=== PATIENT | female | born 1965 | race Caucasian/White ===

== ENCOUNTER 2024-12-17 17:33 | Observation (INO) ==
[2024-12-17 18:16] LABS: Hematocrit (blood only) 44.4 % (37.0-47.0); Hemoglobin 14.7 g/dl (12.0-16.0); Immature Granulocytes # (auto) 0.03 K/uL (0.01-0.20); Immature Granulocytes % (auto) 0.3 %; Mean Corpuscular Hemoglobin 29.6 pg (25.0-34.0); Mean Corpuscular Volume 89.5 fL (80.0-100.0); Platelet Count 307 K/uL (130-400); RDW Standard Deviation 39.1 fL (36.4-46.3); Red Blood Count 4.96 M/uL (4.20-5.40); White Blood Count 11.45 K/ul (4.8-10.8)
[2024-12-17 18:34] LABS: Alanine Aminotransferase 29.0 U/L (7-52); Albumin Globulin Ratio 1.2 (0.9-2); Albumin Level 4.6 gm/dl (3.4-5.0); Alkaline Phosphatase 106.0 U/L (34-104); Anion Gap 9.0 (3-11); Bilirubin,Total 0.6 mg/dl (0.2-1.0); Blood Urea Nitrogen 19.0 mg/dl (6-23); Calcium 10.4 mg/dl (8.6-10.3); Carbon Dioxide 25.0 mmol/L (21-32); Chloride 104.0 mmol/L (98-107); Creatinine Clr Calc Pharmacy 115.3 ml/min; Globulin 3.9 gm/dl (2.5-4.0); Glucose 104.0 mg/dl (70-99(Fasting)); Potassium 4.2 mmol/L (3.5-5.1); Sodium 138.0 mmol/L (136-145); Total Protein 8.5 gm/dl (6.0-8.3)
--- NOTE | 2024-12-17 19:10 | XRay Report ---
Chest radiograph, one view History: Chest pain Comparison: None Findings: Single AP view of the chest performed. No focal consolidation or pleural effusion. No pneumothorax. Small granuloma in the mid right lung. The cardiomediastinal silhouette is within normal limits. Normal pulmonary vascularity. No evidence for lymphadenopathy. No visualized bony or soft tissue abnormality. Impression: Normal chest radiograph Electronically signed by Dontae Hinojosa 12-17-2024 7:10 PM
[2024-12-17] MEDS: ASPIRIN CHEW 324 MG PO STA (19:53)
--- NOTE | 2024-12-17 19:53 | Emergency Department Note ---
Impression & Plan Chest pain, Hypertensive urgency, Shortness of breath ED Provider Note NAME: COLLINS NOE AGE: 59 SEX: F : 1965 ARRIVES VIA: Walk-In INFORMANT: Patient ED PROVIDER(S): Karson Perry DO CHIEF COMPLAINT: Chest tightness HPI: Patient is a 59-year-old female with a past medical history of hyperlipidemia and obesity who presents to the ER for tightness in the middle of her chest. This started around 3 PM today when she was out shopping. She notes she has not felt well since then and has felt off. She has some mild shortness of breath with this. Over the past 2 weeks she has noticed an shortness of breath with exertion which has worsened as she initially noticed this several months ago. She denies any belly pain, nausea, vomiting, or diarrhea. No dysuria, urgency, or frequency. She felt really hot and warm. Currently has very mild tightness. She admits to a family history of heart disease. Denies any recent trips or travel, swelling of the calfs history of blood clots or clotting disorders. ADDITIONAL HISTORY OBTAINED: Per HPI Chronic Medical/Social Conditions Affecting Care: Per HPI PAST MEDICAL HISTORY:See Below PAST SURGICAL HISTORY:See Below FAMILY HISTORY:See Below SOCIAL HISTORY:See Below HOME MEDICATIONS:See Below ALLERGIES:See Below VITALS:See Below PHYSICAL EXAMINATION: GENERAL: Sitting up in bed, alert, well appearing, well nourished, no distress, non-toxic EYE EXAM: normal conjunctiva. OROPHARYNX: mucous membranes are moist NECK: supple, no nuchal rigidity, no adenopathy, non-tender LUNGS: Clear to auscultation. Normal chest wall mechanics HEART: no murmurs, S1 normal and S2 normal ABDOMEN: abdomen soft, non-tender, normo-active bowel sounds, no masses, no rebound or guarding. UPPER EXTREMITIES: upper extremities are grossly normal. LOWER EXTREMITIES: No pitting edema. NEURO EXAM: Normal sensorium, cranial nerves II-XII grossly intact, normal speech, no gross weakness of arms, no gross weakness of legs. MEDICAL DECISION MAKING: Patient is a 59-year-old female who presents ER for the above-stated complaint. IV was established and blood work was obtained. Upon arrival blood pressures were found to be 220-240 systolic. Labs show mild leukocytosis 11,000. No significant anemia. INR unremarkable. BMP with LFTs bilirubin was on remarkable. Troponins were negative x 2. Lipase was normal. Chest x-ray was negative. Patient was given nitro and aspirin. Blood pressures did to the 170s to 180s. Did not want to lower any further as her systolics were 240s initially. Chest pain resolved. Discussed case with hospitalist for further evaluation management treatment. Consults/Care Managements Discussions: Per [facility] Triage Nursing notes reviewed. Limited review of prior medical records performed Vital Signs: reviewed and remarkable for no significant abnormalities Differential diagnosis: Cardiac ischemia, aortic dissection, pulmonary embolism, pneumothorax, pneumonia, pericarditis, myocarditis, esophageal rupture, GERD, cholecystitis, pancreatitis, musculoskeletal, as well as other pathologies. ER treatment provided: See below Diagnostics interpreted by me include EKG and cardiac monitoring as listed below: -Cardiac Monitoring: An order was placed for continuous cardiac monitoring. The monitor shows a rate of 100 with sinus rhythm. -ECG: Sinus rhythm rate of 100 Normal axis No PVCs Nonspecific ST wave changes in the inferior leads QTc 428 -Laboratory studies:Interpreted by me as stated above in MDM and shown below. Imaging studies: Xrays: As interpreted by me: Portable AP upright 1 view of the chest showed no focal infiltrate CTs show: None Procedures: None Critical Care: None Past Med/Surg History Problem List (Updated 12/17/24 @ 22:41 by Karson Perry DO) Shortness of breath (Acute) Hypertensive urgency (Acute) Chest pain (Acute) Medical History History of kidney stones GERD (gastroesophageal reflux disease) Surgical History Hx of cataract extraction LEFT History of hysterectomy with unilateral oophorectomy History of bilateral tubal ligation History of fusion of cervical spine normal ROM History of bladder suspension procedure bladder tack History of colonoscopy History of cholecystectomy History of tooth extraction History of tonsillectomy Family History Other No family history of adverse response to anesthesia Social History Smoking Status: Unknown if ever smoked Tobacco Type: Cigarettes Second Hand Exposure: No; Do You Dip or Chew Tobacco: No; Hx Alcohol Use: Yes Alcohol type: hard liquor Hx Substance Use: No Preferred Language: Panamanian Communication Ability: Effective [employer] Delivery Officer Required: No Beliefs That Will Affect Care: None Current Living Situation: Spouse Feels Safe at Home: Yes Assistive Devices: Contacts Allergies Allergies Allergy/AdvReac Type Severity Reaction Status Date / Time No Known Allergies Allergy Verified 12/17/24 19:48 Home Meds Home Medications Medication Instructions Recorded Confirmed ascorbic acid (vitamin C) 500 mg 1,000 mg PO QAM 03/10/24 12/17/24 chewable tablet aspirin 81 mg capsule 81 mg PO DAILY 03/10/24 12/17/24 cholecalciferol (vitamin D3) 50 50 mcg PO QAM 03/10/24 12/17/24 mcg (2,000 unit) tablet (Vitamin D3) cinnamon bark-chromium picolinate 1 cap PO QAM 03/10/24 12/17/24 500 mg-100 mcg capsule cyanocobalamin (vitamin B-12) 2,500 mcg PO QAM 03/10/24 12/17/24 2,500 mcg sublingual tablet (Vitamin B-12) naproxen 500 mg tablet 500 mg PO DAILY PRN Pain 03/10/24 12/17/24 omega 4-rkx-xal-fish oil 1,200 mg 1 cap PO QAM 03/10/24 12/17/24 (144 mg-216 mg) capsule (Fish Oil) vitamin E 400 unit tablet 400 unit PO QAM 03/10/24 12/17/24 omeprazole 20 mg capsule,delayed 20 mg PO BID 12/17/24 12/17/24 release Results & Data (ED) Vital Signs Vital Signs - 24 hr 12/17/24 17:43 12/17/24 19:45 12/17/24 20:00 Temperature 36.9 C Temperature Source Temporal Artery Scan Pulse Rate 92 H 91 H Pulse Rate [Right Finger] 87 Pulse Rhythm [Right Finger] Regular Pulse Strength [Right Finger] Normal Respiratory Rate 19 19 Respiratory Effort / Characteristics Non-Labored Spontaneous Non-Labored Spontaneous Respiratory Depth Normal Normal Respiratory Pattern Regular Blood Pressure 208/76 H Blood Pressure [Right Arm] 240/129 H Blood Pressure Mean 120 Blood Pressure Mean [Right Arm] 166 Blood Pressure Position [Right Arm] Lying Pulse Oximetry 96 91 Oxygen Delivery Method Room Air Room Air Sepsis Recent Fever Within 48 Hours No Sepsis New/Unexplained Change in Mental Status N/A Sepsis Action Taken by Nursing No Action Required 12/17/24 22:33 Temperature Temperature Source Pulse Rate Pulse Rate [Right Finger] 91 H Pulse Rhythm [Right Finger] Regular Pulse Strength [Right Finger] Respiratory Rate 16 Respiratory Effort / Characteristics Non-Labored Respiratory Depth Normal Respiratory Pattern Blood Pressure Blood Pressure [Right Arm] 177/92 H Blood Pressure Mean Blood Pressure Mean [Right Arm] 120 Blood Pressure Position [Right Arm] Pulse Oximetry 98 Oxygen Delivery Method Room Air Sepsis Recent Fever Within 48 Hours Sepsis New/Unexplained Change in Mental Status Sepsis Action Taken by Nursing Laboratory Data 12/17/24 18:03 12/17/24 18:03 Lab Results 12/17/24 12/17/24 12/17/24 Range/Units 18:03 19:49 19:50 WBC 11.45 H (4.8-10.8) K/ul RBC 4.96 (4.20-5.40) M/uL Hgb 14.7 (12.0-16.0) g/dl Hct 44.4 (37.0-47.0) % MCV 89.5 (80.0-100.0) fL MCH 29.6 (25.0-34.0) pg MCHC 33.1 (32.0-36.0) g/dL RDW Std Deviation 39.1 (36.4-46.3) fL RDW Coeff of Pj 12.0 (11.5-14.5) % Plt Count 307 (130-400) K/uL MPV 10.1 (9.4-12.4) fL Immature Gran % (Auto) 0.3 % Neut % (Auto) 69.3 % Lymph % (Auto) 23.2 % [place] % (Auto) 5.8 % Eos % (Auto) 1.2 % Baso % (Auto) 0.2 % Neut # (Auto) 7.94 H (1.40-6.50) K/uL Lymph # (Auto) 2.66 (1.20-3.40) K/uL [place] # (Auto) 0.66 H (0.11-0.59) K/uL Eos # (Auto) 0.14 (0.00-0.50) K/uL Baso # (Auto) 0.02 (0.00-0.20) K/uL Immature Gran # (Auto) 0.03 (0.01-0.20) K/uL PT Cancelled 10.6 INR Cancelled 1.0 APTT Cancelled 28 PTT Ratio Cancelled 1.0 Sodium 138 (136-145) mmol/L Potassium 4.2 (3.5-5.1) mmol/L Chloride 104 (98-107) mmol/L Carbon Dioxide 25 (21-32) mmol/L Anion Gap 9 (3-11) BUN 19 (6-23) mg/dl Creatinine 0.68 (0.6-1.2) mg/dl Est Cr Clr Drug Dosing 115.3 ml/min eGFR 99.64 BUN/Creatinine Ratio 27.9 H (10-20) Glucose 104 H (70-99(Fasting)) mg/dl Calcium 10.4 H (8.6-10.3) mg/dl Phosphorus 3.3 (2.5-4.9) mg/dl Total Bilirubin 0.6 (0.2-1.0) mg/dl AST 24 (13-39) U/L ALT 29 (7-52) U/L Alkaline Phosphatase 106 H (34-104) U/L Troponin I High Sens 3.7 3.9 (0-14) pg/ml Total Protein 8.5 H (6.0-8.3) gm/dl Albumin 4.6 (3.4-5.0) gm/dl Globulin 3.9 (2.5-4.0) gm/dl Albumin/Globulin Ratio 1.2 (0.9-2) Lipase 12 (11-82) U/L Administered Medications Sodium Chloride (Nss) 1,000 mls @ 60 mls/hr IV .[id number] ONE Stop: 12/18/24 13:15 Last Admin: 12/17/24 20:58 Dose: 60 mls/hr Documented By: MICHELL Nitroglycerin (Nitroglycerin Sl 0.4 Mg/Tab Tab) 0.4 mg SL Q5M PRN PRN Reason: Chest Pain Stop: 01/16/25 19:47 Last Admin: 12/17/24 19:59 Dose: 0.4 mg Documented By: MICHELL Discontinued Medications Aspirin (Aspirin Chew 324 Mg) 324 mg PO NOW STA Stop: 12/17/24 19:49 Last Admin: 12/17/24 19:53 Dose: 324 mg Documented By: [facility] Lisinopril (Lisinopril 5 Mg Tab) 5 mg PO NOW ONE Stop: 12/17/24 20:40 Last Admin: 12/17/24 20:58 Dose: 5 mg Documented By: [facility] Imaging Data Radiologist's Impression: Chest X-Ray 12/17/24 17:46 Chest radiograph, one view History: Chest pain Comparison: None Findings: Single AP view of the chest performed. No focal consolidation or pleural effusion. No pneumothorax. Small granuloma in the mid right lung. The cardiomediastinal silhouette is within normal limits. Normal pulmonary vascularity. No evidence for lymphadenopathy. No visualized bony or soft tissue abnormality. Impression: Normal chest radiograph Electronically signed by Dontae Hinojosa 12-17-2024 7:10 PM Discharge Plan Visit Data Chief Complaint: Referred by Doctor Stated Complaint: TIGHTNESS IN CHESST, BOTTOM LIP NUMB DOC REFERRAL ED Provider: Karson Perry Discharge Problem: Chest pain, Hypertensive urgency, Shortness of breath Condition: Fair Forms Stand Alone Forms: [facility] Prescriptions Prescriptions: No Action omeprazole 20 mg capsule,delayed release(DR/EC) 20 mg PO BID cyanocobalamin (vitamin B-12) [Vitamin B-12] 2,500 mcg Tablet, Sublingual 2,500 mcg PO QAM ascorbic acid (vitamin C) 500 mg Tablet,Chewable 1,000 mg PO QAM vitamin E 400 unit Tablet 400 unit PO QAM naproxen 500 mg Tablet 500 mg PO DAILY PRN (Reason: Pain) cholecalciferol (vitamin D3) [Vitamin D3] 50 mcg (2,000 unit) Tablet 50 mcg PO QAM omega 5-ejw-fbe-fish oil [Fish Oil] 1,200 (144-216) mg Capsule 1 cap PO QAM cinnamon bark-chromium picolin 500-100 mg-mcg Capsule 1 cap PO QAM aspirin 81 mg Capsule 81 mg PO DAILY Referrals Referrals: Marietta Salazar DO [Primary Care Provider] - Discharge Problem: Chest pain Qualifiers: Chest pain type: unspecified Qualified Code(s): R07.9 - Chest pain, unspecified
[2024-12-17] MEDS: NITROGLYCERIN SL 0.4 MG/TAB TAB SL PRN (19:59)
[2024-12-17 20:27] LABS: Lipase 12.0 U/L (11-82)
[2024-12-17 20:42] LABS: INR 1.0 (0.9-1.1); Partial Thromboplastin Time 28 Seconds (21-31); Prothrombin Time 10.6 Seconds (9.0-12.0)
[2024-12-17] MEDS: SODIUM CHLORIDE 0.9% 1,000 ML IV ONE (20:58)
--- NOTE | 2024-12-17 21:28 | History & Physical Report ---
Date of Service December 17, 2024 Assessment & Plan (1) Chest pain: Plan: Assessment and plan below following discussion of case with ED provider and reviewing patient history/pertinent normal/abnormal diagnostic test results. Chest pain secondary to hypertensive crisis Mild hypercalcemia hyperlipidemia, on statin Rx hx GERD, stable on PPI past tobacco abuse OBS PCU Initiate lisinopril Monitor calcium response to NSS IVF, check Phos and intact PTH levels TTE re: chest pain DVT prophylaxis. Lovenox subcu Full code Text document was generated using [employer] voice recognition software. It may contain grammatical or spelling errors. Kindly contact undersigned for clarification of any documentation item in question. History of Present Illness Chief Complaint: Chest tightness Primary Care Provider: Marietta Salazar DO History obtained from patient, family, and records. Medical history significant for borderline hypertension, hyperlipidemia, GERD, past tobacco abuse. Patient recovering from respiratory tract infection the last few days. Not sure about sick contacts. Cough symptoms productive of clear sputum improving. Denies fever, chills. Patient had chest tightness today associated with some SOB and diaphoresis. Different from reflux. Denies abdominal pain. Denies unusual stress at home. Achy headache symptoms. Patient snores at night as per . No witnessed apneic events. Highest SBP of 240s documented at the ER. Chest tightness improved with nitroglycerin administration. Medical History as above Surgical History : Neck surgery, cholecystectomy, hysterectomy Family History : Heart disease, DM, stroke Personal/Social history : Last tobacco abuse, occasional EtOH intake, retired convention manager Allergies Allergy/AdvReac Type Severity Reaction Status Date / Time No Known Allergies Allergy Verified 12/17/24 19:48 Home Medications Medication Instructions Recorded Confirmed Type ascorbic acid (vitamin C) 500 mg 1,000 mg PO QAM 03/10/24 12/17/24 History chewable tablet aspirin 81 mg capsule 81 mg PO DAILY 03/10/24 12/17/24 History cholecalciferol (vitamin D3) 50 50 mcg PO QAM 03/10/24 12/17/24 History mcg (2,000 unit) tablet (Vitamin D3) cinnamon bark-chromium picolinate 1 cap PO QAM 03/10/24 12/17/24 History 500 mg-100 mcg capsule cyanocobalamin (vitamin B-12) 2,500 mcg PO QAM 03/10/24 12/17/24 History 2,500 mcg sublingual tablet (Vitamin B-12) naproxen 500 mg tablet 500 mg PO DAILY PRN Pain 03/10/24 12/17/24 History omega 8-cww-plr-fish oil 1,200 mg 1 cap PO QAM 03/10/24 12/17/24 History (144 mg-216 mg) capsule (Fish Oil) vitamin E 400 unit tablet 400 unit PO QAM 03/10/24 12/17/24 History omeprazole 20 mg capsule,delayed 20 mg PO BID 12/17/24 12/17/24 History release Past Med/Surg History Problem List (Updated 12/17/24 @ 22:41 by Karson Perry DO) Shortness of breath (Acute) Hypertensive urgency (Acute) Chest pain (Acute) Medical History History of kidney stones GERD (gastroesophageal reflux disease) Surgical History Hx of cataract extraction LEFT History of hysterectomy with unilateral oophorectomy History of bilateral tubal ligation History of fusion of cervical spine normal ROM History of bladder suspension procedure bladder tack History of colonoscopy History of cholecystectomy History of tooth extraction History of tonsillectomy Family History Other No family history of adverse response to anesthesia Social History Smoking Status: Former smoker Tobacco Type: Cigarettes Second Hand Exposure: No; Do You Dip or Chew Tobacco: No; Tobacco Cessation Education Requested by Patient: No Hx Alcohol Use: Yes Alcohol type: hard liquor Hx Substance Use: No Preferred Language: Luxembourgish Communication Ability: Effective [place] Applier Required: No Beliefs That Will Affect Care: None Current Living Situation: Spouse Other Information That Helps Us Care for You: No Feels Safe at Home: Yes Safety Concerns: Feels Safe At This Time Assistive Devices: None Review of Systems Review of Systems: As per HPI, all other systems reviewed and negative Physical Exam Physical Exam: GENERAL: Comfortable, pleasant, morbidly obese, no respiratory distress SKIN: Normal color, warm HEENT: [place] palpebral conjunctivae, no ptosis, dry buccal mucosa NECK : Supple, short neck, no tenderness CHEST : CTA, no tenderness HEART : RRR, no obvious murmurs ABDOMEN: Some distention, nontender EXTREMITIES : Minimal LE swelling, no LE tenderness, palpable pulses, no other conspicuous deformities noted NEUROLOGIC : Coherent, no facial asymmetry, no other gross focality Results & Data Results & Data Vital Signs (Past 12 Hours) Vital Signs Temp Pulse Pulse Resp BP BP Pulse Ox 12/17/24 20:00 91 H 12/17/24 19:45 87 19 240/129 H 91 12/17/24 17:43 36.9 C 92 H 19 208/76 H 96 O2 Del Method 12/17/24 20:00 12/17/24 19:45 Room Air 12/17/24 17:43 Room Air Laboratory Results Laboratory Results WBC 11.45 K/ul (4.8-10.8) H 12/17/24 18:03 RBC 4.96 M/uL (4.20-5.40) 12/17/24 18:03 Hgb 14.7 g/dl (12.0-16.0) 12/17/24 18:03 Hct 44.4 % (37.0-47.0) 12/17/24 18:03 MCV 89.5 fL (80.0-100.0) 12/17/24 18:03 MCH 29.6 pg (25.0-34.0) 12/17/24 18:03 MCHC 33.1 g/dL (32.0-36.0) 12/17/24 18:03 RDW Std Deviation 39.1 fL (36.4-46.3) 12/17/24 18:03 RDW Coeff of Pj 12.0 % (11.5-14.5) 12/17/24 18:03 Plt Count 307 K/uL (130-400) 12/17/24 18:03 MPV 10.1 fL (9.4-12.4) 12/17/24 18:03 Immature Gran % (Auto) 0.3 % 12/17/24 18:03 Neut % (Auto) 69.3 % 12/17/24 18:03 Lymph % (Auto) 23.2 % 12/17/24 18:03 [place] % (Auto) 5.8 % 12/17/24 18:03 Eos % (Auto) 1.2 % 12/17/24 18:03 Baso % (Auto) 0.2 % 12/17/24 18:03 Neut # (Auto) 7.94 K/uL (1.40-6.50) H 12/17/24 18:03 Lymph # (Auto) 2.66 K/uL (1.20-3.40) 12/17/24 18:03 [place] # (Auto) 0.66 K/uL (0.11-0.59) H 12/17/24 18:03 Eos # (Auto) 0.14 K/uL (0.00-0.50) 12/17/24 18:03 Baso # (Auto) 0.02 K/uL (0.00-0.20) 12/17/24 18:03 Immature Gran # (Auto) 0.03 K/uL (0.01-0.20) 12/17/24 18:03 PT 10.6 Seconds (9.0-12.0) 12/17/24 19:49 INR 1.0 (0.9-1.1) 12/17/24 19:49 APTT 28 Seconds (21-31) 12/17/24 19:49 PTT Ratio 1.0 12/17/24 19:49 Sodium 138 mmol/L (136-145) 12/17/24 18:03 Potassium 4.2 mmol/L (3.5-5.1) 12/17/24 18:03 Chloride 104 mmol/L (98-107) 12/17/24 18:03 Carbon Dioxide 25 mmol/L (21-32) 12/17/24 18:03 Anion Gap 9 (3-11) 12/17/24 18:03 BUN 19 mg/dl (6-23) 12/17/24 18:03 Creatinine 0.68 mg/dl (0.6-1.2) 12/17/24 18:03 Est Cr Clr Drug Dosing 115.3 ml/min 12/17/24 18:03 eGFR 99.64 12/17/24 18:03 BUN/Creatinine Ratio 27.9 (10-20) H 12/17/24 18:03 Glucose 104 mg/dl (70-99(Fasting)) H 12/17/24 18:03 Calcium 10.4 mg/dl (8.6-10.3) H 12/17/24 18:03 Phosphorus 3.3 mg/dl (2.5-4.9) 12/17/24 19:50 Total Bilirubin 0.6 mg/dl (0.2-1.0) 12/17/24 18:03 AST 24 U/L (13-39) 12/17/24 18:03 ALT 29 U/L (7-52) 12/17/24 18:03 Alkaline Phosphatase 106 U/L (34-104) H 12/17/24 18:03 Troponin I High Sens 3.9 pg/ml (0-14) 12/17/24 19:50 Total Protein 8.5 gm/dl (6.0-8.3) H 12/17/24 18:03 Albumin 4.6 gm/dl (3.4-5.0) 12/17/24 18:03 Globulin 3.9 gm/dl (2.5-4.0) 12/17/24 18:03 Albumin/Globulin Ratio 1.2 (0.9-2) 12/17/24 18:03 Lipase 12 U/L (11-82) 12/17/24 19:50 Impressions Chest X-Ray 12/17/24 17:46 Chest radiograph, one view History: Chest pain Comparison: None Findings: Single AP view of the chest performed. No focal consolidation or pleural effusion. No pneumothorax. Small granuloma in the mid right lung. The cardiomediastinal silhouette is within normal limits. Normal pulmonary vascularity. No evidence for lymphadenopathy. No visualized bony or soft tissue abnormality. Impression: Normal chest radiograph Electronically signed by Dontae Hinojosa 12-17-2024 7:[address] head: No evidence of acute intracranial pathology. Diagnostic Findings EKG as per my interpretation :Rate 85, NSR, normal axis, T wave inversion inferior leads (1) Chest pain Chest pain type: unspecified Qualified Code(s): R07.9 - Chest pain, unspecified
[2024-12-17 22:57] LABS: Influenza A virus by PCR Negative (Neg); Influenza B virus by PCR Negative (Neg); SARS CoV2 RNA(COVID-19) Ceph NEGATIVE (Negative)
--- NOTE | 2024-12-17 23:48 | CT Scan Report ---
Exam(s): CT HEAD Without Contrast EXAM: CT Head Without Intravenous Contrast CLINICAL HISTORY: Reason for exam: vieira, htn crisis. TECHNIQUE: Axial computed tomography images of the head/brain without intravenous contrast. CTDI is 36.79 mGy and DLP is 546.36 mGy-cm. Automated exposure control was utilized for the study. A dose lowering technique was utilized adhering to the principles of ALARA. COMPARISON: No relevant prior studies available. FINDINGS: Brain: Unremarkable. No hemorrhage. No significant white matter disease. No edema. Ventricles: Unremarkable. No ventriculomegaly. Bones/joints: Incomplete fusion of the posterior ring of C1. No acute fracture. Soft tissues: Unremarkable. Sinuses: Unremarkable as visualized. No acute sinusitis. Mastoid air cells: Unremarkable as visualized. No mastoid effusion. IMPRESSION: No evidence of acute intracranial pathology. Electronically signed by: Jessica Guzman MD 12/17/24 23:47 PM
[2024-12-17 23:56] LABS: Calcium 10.0 mg/dl (8.6-10.3)
[2024-12-17] MEDS ORDERED: MoRPHine SULFATE 4 MG/ML 1 ML CARP\\VIAL IV PRN (23:56)
[2024-12-17] MEDS ORDERED: LORazepam 0.5 MG TAB PO PRN (23:57)
[2024-12-17] MEDS ORDERED: ACETAMINOPHEN 325 MG TAB PO PRN (23:57)
[2024-12-18 01:44] VITALS: RESP 18
[2024-12-18] MEDS: FAMOTIDINE 20MG IV PUSH 20 MG/5 ML SYR IV ONE (01:51)
[2024-12-18] MEDS ORDERED: MoRPHine SULFATE 4 MG/ML 1 ML CARP\\VIAL IV PRN (07:49)
[2024-12-18 08:45] LABS: Hematocrit (blood only) 39.0 % (37.0-47.0); Hemoglobin 12.9 g/dl (12.0-16.0); Immature Granulocytes # (auto) 0.05 K/uL (0.01-0.20); Immature Granulocytes % (auto) 0.6 %; Mean Corpuscular Hemoglobin 29.5 pg (25.0-34.0); Mean Corpuscular Volume 89.2 fL (80.0-100.0); Platelet Count 290 K/uL (130-400); RDW Standard Deviation 39.6 fL (36.4-46.3); Red Blood Count 4.37 M/uL (4.20-5.40); White Blood Count 9.09 K/ul (4.8-10.8)
[2024-12-18 09:02] LABS: Anion Gap 9.0 (3-11); Blood Urea Nitrogen 14.0 mg/dl (6-23); Calcium 9.6 mg/dl (8.6-10.3); Carbon Dioxide 24.0 mmol/L (21-32); Chloride 106.0 mmol/L (98-107); Creatinine Clr Calc Pharmacy 122.0 ml/min; Glucose 101.0 mg/dl (70-99(Fasting)); Magnesium 1.9 mg/dl (1.7-2.4); Potassium 3.8 mmol/L (3.5-5.1); Sodium 139.0 mmol/L (136-145)
[2024-12-18] MEDS: CYANOCOBALAMIN (B-12) 2,500 MCG TABLET PO SCH (09:03)
[2024-12-18] MEDS: ASPIRIN 81 MG ECTAB PO SCH (09:03)
[2024-12-18] MEDS: LOSARTAN POTASSIUM 25 MG TAB PO SCH (09:04)
[2024-12-18] MEDS: ENOXAPARIN INJ 40 MG/0.4 ML SYR SQ SCH (09:04)
[2024-12-18 11:11] VITALS: BP 130/76; TEMP 98.1; O2SAT 94
--- NOTE | 2024-12-18 13:36 | Hospitalist Progress Note ---
Date of Service December 18, 2024 Assessment & Plan (1) Chest pain: Plan: Hypertensive urgency Atypical chest pain likely due to above --CXR:Normal chest radiograph --Head CT:No evidence of acute intracranial pathology. --ECHO: Left ventricle is normal in size. Borderline concentric LVH. No regional wall motion abnormality. EF 55 to 60%. No gross valvular abnormalities --Troponin x 3: Negative Symptoms resolved after blood pressure control Started on amlodipine 2.5 mg daily, losartan 25 mg daily Advised to get sleep study as outpatient If recurrent chest pain, advised to get stress test as outpatient Patient understands and agrees with the plan Plan to be discharged home today Mild hypercalcemia Resolved with IV fluids Normal PTH Vitamin D level not elevated Vitamin D deficiency Continue vitamin D supplement Hyperlipidemia Currently not taking statin due to intolerance Advised to follow-up as outpatient GERD Continue PPI Past tobacco abuse Morbid obesity BMI 47.8 Counseled lifestyle changes DVT Px: Lovenox SQ Code Status Full code Admission and Anticipated Discharge Date Admission Date: December 17, 2024 Subjective Patient is seen and examined at bedside Headache much improved Chest discomfort resolved Offers no other complaints Denies any dyspnea, nausea, vomiting, abdominal pain Family at bedside Review of Systems Review of Systems: All systems reviewed & are unremarkable except as noted in Subjective Physical Exam Physical Exam: Physical Exam: Vitals signs as noted above General Appearance:Morbidly Obese, no apparent distress Head: normocephalic, Atraumatic Eyes: normal inspection, EOMI Neck: supple, Trachea midline Respiratory/Chest: Normal breath sounds, CTA, No accessory muscle use Cardiovascular: S1, S2, No murmur Abdomen/GI:Soft, Non tender, Bowel sounds present Extremities/Musculoskeletal:normal inspection, Trace pedal edema Neurologic/Psych:AAOX3, grossly no focal neurological deficits Skin: normal color, warm Results & Data Results & Data Vital Signs (Past 12 Hours) Vital Signs Temp Pulse Pulse Resp BP Pulse Ox O2 Del Method 12/18/24 11:10 36.7 C 80 18 130/76 94 Room Air 12/18/24 07:52 36.6 C 82 18 148/76 H 96 Room Air 12/18/24 03:30 86 12/18/24 02:24 36.6 C 71 18 154/69 H 96 Room Air Laboratory Results Short CBC 12/17/24 12/18/24 Range/Units 18:03 07:00 WBC 11.45 H 9.09 (4.8-10.8) K/ul Hgb 14.7 12.9 (12.0-16.0) g/dl Hct 44.4 39.0 (37.0-47.0) % Plt Count 307 290 (130-400) K/uL BMP 12/17/24 12/17/24 12/18/24 18:03 23:13 07:00 Sodium 138 139 Potassium 4.2 3.8 Chloride 104 106 Carbon Dioxide 25 24 BUN 19 14 Creatinine 0.68 0.60 Glucose 104 H 101 H Calcium 10.4 H 10.0 9.6 Liver Function 12/17/24 Range/Units 18:03 Total Bilirubin 0.6 (0.2-1.0) mg/dl AST 24 (13-39) U/L ALT 29 (7-52) U/L Alkaline Phosphatase 106 H (34-104) U/L Albumin 4.6 (3.4-5.0) gm/dl (1) Chest pain Chest pain type: unspecified Qualified Code(s): R07.9 - Chest pain, unspecified
[2024-12-18 13:48] VITALS: PULSE 80
--- NOTE | 2024-12-18 15:04 | Discharge Summary ---
Date of Service December 18, 2024 Admission HPI Per Admitting Provider History obtained from patient, family, and records. Medical history significant for borderline hypertension, hyperlipidemia, GERD, past tobacco abuse. Patient recovering from respiratory tract infection the last few days. Not sure about sick contacts. Cough symptoms productive of clear sputum improving. Denies fever, chills. Patient had chest tightness today associated with some SOB and diaphoresis. Different from reflux. Denies abdominal pain. Denies unusual stress at home. Achy headache symptoms. Patient snores at night as per . No witnessed apneic events. Highest SBP of 240s documented at the ER. Chest tightness improved with nitroglycerin administration. Medical History as above Surgical History : Neck surgery, cholecystectomy, hysterectomy Family History : Heart disease, DM, stroke Personal/Social history : Last tobacco abuse, occasional EtOH intake, retired staff development manager Admission Exam Per Admitting Provider GENERAL: Comfortable, pleasant, morbidly obese, no respiratory distress SKIN: Normal color, warm HEENT: [place] palpebral conjunctivae, no ptosis, dry buccal mucosa NECK : Supple, short neck, no tenderness CHEST : CTA, no tenderness HEART : RRR, no obvious murmurs ABDOMEN: Some distention, nontender EXTREMITIES : Minimal LE swelling, no LE tenderness, palpable pulses, no other conspicuous deformities noted NEUROLOGIC : Coherent, no facial asymmetry, no other gross focality Principal Diagnosis Hypertensive urgency Atypical chest pain Discharge Data Allergies Allergy/AdvReac Type Severity Reaction Status Date / Time No Known Allergies Allergy Verified 12/17/24 19:48 Consultations 12/17/24 20:33 ED Decision to Admit Stat Procedures Performed Laboratory Results WBC 9.09 K/ul (4.8-10.8) 12/18/24 07:00 RBC 4.37 M/uL (4.20-5.40) 12/18/24 07:00 Hgb 12.9 g/dl (12.0-16.0) 12/18/24 07:00 Hct 39.0 % (37.0-47.0) 12/18/24 07:00 MCV 89.2 fL (80.0-100.0) 12/18/24 07:00 MCH 29.5 pg (25.0-34.0) 12/18/24 07:00 MCHC 33.1 g/dL (32.0-36.0) 12/18/24 07:00 RDW Std Deviation 39.6 fL (36.4-46.3) 12/18/24 07:00 RDW Coeff of Pj 12.2 % (11.5-14.5) 12/18/24 07:00 Plt Count 290 K/uL (130-400) 12/18/24 07:00 MPV 10.4 fL (9.4-12.4) 12/18/24 07:00 Immature Gran % (Auto) 0.6 % 12/18/24 07:00 Neut % (Auto) 59.5 % 12/18/24 07:00 Lymph % (Auto) 30.7 % 12/18/24 07:00 Hubbard % (Auto) 7.6 % 12/18/24 07:00 Eos % (Auto) 1.4 % 12/18/24 07:00 Baso % (Auto) 0.2 % 12/18/24 07:00 Neut # (Auto) 5.41 K/uL (1.40-6.50) 12/18/24 07:00 Lymph # (Auto) 2.79 K/uL (1.20-3.40) 12/18/24 07:00 Hubbard # (Auto) 0.69 K/uL (0.11-0.59) H 12/18/24 07:00 Eos # (Auto) 0.13 K/uL (0.00-0.50) 12/18/24 07:00 Baso # (Auto) 0.02 K/uL (0.00-0.20) 12/18/24 07:00 Immature Gran # (Auto) 0.05 K/uL (0.01-0.20) 12/18/24 07:00 PT 10.6 Seconds (9.0-12.0) 12/17/24 19:49 INR 1.0 (0.9-1.1) 12/17/24 19:49 APTT 28 Seconds (21-31) 12/17/24 19:49 PTT Ratio 1.0 12/17/24 19:49 Sodium 139 mmol/L (136-145) 12/18/24 07:00 Potassium 3.8 mmol/L (3.5-5.1) 12/18/24 07:00 Chloride 106 mmol/L (98-107) 12/18/24 07:00 Carbon Dioxide 24 mmol/L (21-32) 12/18/24 07:00 Anion Gap 9 (3-11) 12/18/24 07:00 BUN 14 mg/dl (6-23) 12/18/24 07:00 Creatinine 0.60 mg/dl (0.6-1.2) 12/18/24 07:00 Est Cr Clr Drug Dosing 122.0 ml/min 12/18/24 07:00 eGFR 102.69 12/18/24 07:00 BUN/Creatinine Ratio 23.3 (10-20) H 12/18/24 07:00 Glucose 101 mg/dl (70-99(Fasting)) H 12/18/24 07:00 Calcium 9.6 mg/dl (8.6-10.3) 12/18/24 07:00 Phosphorus 3.3 mg/dl (2.5-4.9) 12/17/24 19:50 Magnesium 1.9 mg/dl (1.7-2.4) 12/18/24 07:00 Total Bilirubin 0.6 mg/dl (0.2-1.0) 12/17/24 18:03 AST 24 U/L (13-39) 12/17/24 18:03 ALT 29 U/L (7-52) 12/17/24 18:03 Alkaline Phosphatase 106 U/L (34-104) H 12/17/24 18:03 Troponin I High Sens 3.9 pg/ml (0-14) 12/17/24 23:13 Total Protein 8.5 gm/dl (6.0-8.3) H 12/17/24 18:03 Albumin 4.6 gm/dl (3.4-5.0) 12/17/24 18:03 Globulin 3.9 gm/dl (2.5-4.0) 12/17/24 18:03 Albumin/Globulin Ratio 1.2 (0.9-2) 12/17/24 18:03 Lipase 12 U/L (11-82) 12/17/24 19:50 25-OH Vitamin D Total 23.6 ng/ml (30-100) L 12/18/24 07:00 PTH Intact 44.7 pg/ml (12.0-88.0) 12/17/24 23:13 SARS-CoV-2 (PCR) NEGATIVE (Negative) 12/17/24 22:04 Influenza Type A (PCR) Negative (Neg) 12/17/24 22:04 Influenza Type B (PCR) Negative (Neg) 12/17/24 22:04 RSV (RT-PCR) Negative (Neg) 12/17/24 22:04 Impressions Chest X-Ray 12/17/24 17:46 Chest radiograph, one view History: Chest pain Comparison: None Findings: Single AP view of the chest performed. No focal consolidation or pleural effusion. No pneumothorax. Small granuloma in the mid right lung. The cardiomediastinal silhouette is within normal limits. Normal pulmonary vascularity. No evidence for lymphadenopathy. No visualized bony or soft tissue abnormality. Impression: Normal chest radiograph Electronically signed by Dontae Hinojosa 12-17-2024 7:[address] 12/17/24 21:25 Exam(s): CT HEAD Without Contrast EXAM: CT Head Without Intravenous Contrast CLINICAL HISTORY: Reason for exam: vieira, htn crisis. TECHNIQUE: Axial computed tomography images of the head/brain without intravenous contrast. CTDI is 36.79 mGy and DLP is 546.36 mGy-cm. Automated exposure control was utilized for the study. A dose lowering technique was utilized adhering to the principles of ALARA. COMPARISON: No relevant prior studies available. FINDINGS: Brain: Unremarkable. No hemorrhage. No significant white matter disease. No edema. Ventricles: Unremarkable. No ventriculomegaly. Bones/joints: Incomplete fusion of the posterior ring of C1. No acute fracture. Soft tissues: Unremarkable. Sinuses: Unremarkable as visualized. No acute sinusitis. Mastoid air cells: Unremarkable as visualized. No mastoid effusion. IMPRESSION: No evidence of acute intracranial pathology. Electronically signed by: Jessica Guzman MD 12/17/24 23:47 PM Ordered Studies 12/17/24 21:25 CT head/brain wo con Stat Hospital Course (1) Chest pain: Hypertensive urgency Atypical chest pain likely due to above --CXR:Normal chest radiograph --Head CT:No evidence of acute intracranial pathology. --ECHO: Left ventricle is normal in size. Borderline concentric LVH. No regional wall motion abnormality. EF 55 to 60%. No gross valvular abnormalities --Troponin x 3: Negative Symptoms resolved after blood pressure control Started on amlodipine 2.5 mg daily, losartan 25 mg daily Advised to get sleep study as outpatient If recurrent chest pain, advised to get stress test as outpatient Patient understands and agrees with the plan Plan to be discharged home today Mild hypercalcemia Resolved with IV fluids Normal PTH Vitamin D level not elevated Vitamin D deficiency Continue vitamin D supplement Hyperlipidemia Currently not taking statin due to intolerance Advised to follow-up as outpatient GERD Continue PPI Past tobacco abuse Morbid obesity BMI 47.8 Counseled lifestyle changes DVT Px: Lovenox SQ Code Status Full code Total Time Total Time Spent Total Time Spent (In Minutes): 51 minutes Discharge Plan Discharge Items Patient Disposition: Home - Self-Care Reason For Visit: HTN CRISIS Discharge Diagnosis: Hypertensive urgency Atypical chest pain Condition on Discharge: Fair Activity: Per Instructions section Exercise/Sports: Gradually increase as tolerated Non-emergency contact: Primary Care Provider Call non-emergency contact if: you have any medication questions, your symptoms worsen, your pain is concerning for you and you have a fever Follow-up/Referrals: Marietta Salazar DO [Primary Care Provider] - (Date & Time 12/23/2024 9:40 AM Provider: Marietta Salazar DO [facility] ) Diet: Heart Healthy Add Attending Provider Instructions: -- Follow-up with your primary care physician Dr. Salazar on 12/23/2024 9:40 AM -- Follow-up with your case management social worker if you have recurrence of chest pain for possible stress test as outpatient --Monitor your blood pressure regularly as advised and discussed with your primary care physician for further adjustment of medications as needed. --Obtain polysomnography (Sleep Study) to rule out sleep apnea as recommended Seek immediate medical attention if your symptoms reoccur or worsen Please review medication list provided on discharge for any medication changes as instructed. Please call if you have any questions or problems. You can reach a [facility] hospitalist on duty at [facility] 24 hours a day by calling [phone] Pending Studies at Discharge: No Stand-Alone Forms: My [facility] [employer], Smoking Cessation Medications and DC Order Prescriptions: New amlodipine 5 mg Tablet 2.5 mg PO QAM Qty: 30 1RF losartan 25 mg Tablet 25 mg PO QAM Qty: 30 1RF Continued omeprazole 20 mg capsule,delayed release(DR/EC) 20 mg PO BID cyanocobalamin (vitamin B-12) [Vitamin B-12] 2,500 mcg Tablet, Sublingual 2,500 mcg PO QAM ascorbic acid (vitamin C) 500 mg Tablet,Chewable 1,000 mg PO QAM vitamin E 400 unit Tablet 400 unit PO QAM naproxen 500 mg Tablet 500 mg PO DAILY PRN (Reason: Pain) cholecalciferol (vitamin D3) [Vitamin D3] 50 mcg (2,000 unit) Tablet 50 mcg PO QAM omega 1-kah-pha-fish oil [Fish Oil] 1,200 (144-216) mg Capsule 1 cap PO QAM cinnamon bark-chromium picolin 500-100 mg-mcg Capsule 1 cap PO QAM aspirin 81 mg Capsule 81 mg PO DAILY Discharge Orders: Discharge Order (Routine); Ordered 12/18/24 Ordered By: Bruno Sauceda/Other Patient Handouts: High Blood Pressure Risk Factors, Understanding High Blood Pressure Admission Data Admit Date/Time: 12/17/24 23:54 Attending Provider: Bruno Horvath Admit Provider: Augusto Russell Primary Care Provider: Marietat Salazar Other Providers: Augusto Russell Other Interventions: Discharge Summary Assessment (RN) Last Done: 12/18/24 13:46
--- NOTE | 2024-12-22 05:21 | Electrocardiogram Report ---
Test Reason : Blood Pressure : */* mmHG Vent. Rate : 85 BPM Atrial Rate : 85 BPM P-R Int : 120 ms QRS Dur : 78 ms QT Int : 346 ms P-R-T Axes : -22 -7 -13 degrees QTcB Int : 411 ms Normal sinus rhythm with sinus arrhythmia Nonspecific ST abnormality Abnormal ECG When compared with ECG of 17-Dec-2024 17:59, (unconfirmed) T wave inversion now evident in Inferior leads Confirmed by Good Tavares ([id number]) on 12/22/2024 5:20:54 AM Referred By: REFERRED SELF Confirmed By: Good Tavares
--- NOTE | 2024-12-22 05:28 | Electrocardiogram Report ---
Test Reason : Blood Pressure : */* mmHG Vent. Rate : 100 BPM Atrial Rate : 100 BPM P-R Int : 110 ms QRS Dur : 82 ms QT Int : 332 ms P-R-T Axes : 57 45 40 degrees QTcB Int : 428 ms Sinus rhythm with short SD Nonspecific ST abnormality Abnormal ECG No previous ECGs available Confirmed by Good Tavares ([id number]) on 12/22/2024 5:28:05 AM Referred By: REFERRED SELF Confirmed By: Good Tavares
== END 2024-12-18 14:24 | disposition home or self-care (01) ==
LOC: EDINP 17:33 → ED 17:33 → 2S 12-18 00:17